=== PATIENT | female | born 1965 | race Caucasian/White ===

== ENCOUNTER → 2020-11-20 13:19 | Outpatient (CLI) | payer OTHER, BC, SELFPAY ==
--- NOTE | ~2020-11-20 | MM_ITS ---
EXAMINATION: MM screening aj BI w carli HISTORY: Screening TECHNIQUE: Craniocaudal and mediolateral oblique 3-D tomosynthesis images were obtained and synthetic 2-D images were generated. CAD analysis was submitted and interpreted. COMPARISON: Comparison to multiple prior studies sequentially, with oldest reviewed study dated 09/26. BREAST PARENCHYMAL COMPOSITION: The breasts are extremely dense, which lowers the sensitivity of mamm ography FINDINGS: Stable appearance to benign-appearing calcifications upper aspect of the left breast on MLO view. There is no evidence of suspicious mass, calcification, or architectural distortion to suggest malignancy in either breast. There has been no suspicious interval change. IMPRESSION: 1. No mammographic evidence of malignancy. 2. Recommend routine screening mammography in one year. BI-RADS Category 2: Benign finding(s). Reviewed, dictated and finalized at location A. 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
== END ==
PROVIDERS: PCP Internal Medicine; Visit Provider Obstetrics & Gynecology
DX: Z12.31 Encounter for screening mammogram for malignant neoplasm of breast (principal)
CPT/HCPCS: 77063; 77067

== ENCOUNTER → 2021-12-06 15:49 | Outpatient (CLI) | payer OTHER, BC, SELFPAY ==
--- NOTE | ~2021-12-06 | MM_ITS ---
EXAMINATION: MM screening aj BI w carli HISTORY: Screening TECHNIQUE: Craniocaudal and mediolateral oblique 3-D tomosynthesis images were obtained and synthetic 2-D images were generated. CAD analysis was submitted and interpreted. COMPARISON: Comparison to multiple prior studies sequentially, with oldest reviewed study dated 09/27. BREAST PARENCHYMAL COMPOSITION: The breasts are extremely dense, which lowers the sensitivity of mamm ography FINDINGS: There is no evidence of suspicious mass, calcification, or architectural distortion to sugg est malignancy in either breast. There has been no suspicious interval change. IMPRESSION: 1. No mammographic evidence of malignancy. 2. Recommend routine screening mammography in one year. BI-RADS Category 1: Negative Reviewed, dictated and finalized at location A. CTOR TITLE
== END ==
PROVIDERS: PCP Internal Medicine; Visit Provider Obstetrics & Gynecology
DX: Z12.31 Encounter for screening mammogram for malignant neoplasm of breast (principal)
CPT/HCPCS: 77063; 77067

== ENCOUNTER → 2022-11-17 08:08 | Outpatient (CLI) | payer OTHER, BC, SELFPAY ==
--- NOTE | ~2022-11-17 | CT_ITS ---
CT of the Abdomen and Pelvis: Indication: Microscopic hematuria Technique: 2.5 mm axial scans were obtained through the abdomen and pelvis prior to and following in travenous administration of 130 cc of Omnipaque 350. Dose reduction technique was used on this scan b y utilizing automated exposure control and iterative reconstruction technique. The dose-length produc t (DLP) was 1023.33 mGy-cm. COMPARISON: 07/04/2015 Findings: Scans through the lung bases are unremarkable. The liver, spleen, pancreas, gallbladder, left adrenal gland, and kidneys are within normal limits. L ow-density right adrenal nodule measures 2.6 cm in diameter. No evidence of aortic aneurysm. No lymp hadenopathy. No bowel obstruction or bowel wall thickening. There is no evidence to suggest acute appendicitis. Images through the pelvis were performed. Urinary bladder unremarkable. No adnexal mass seen. Small a mount of pelvic free fluid noted. Impression: No etiology for hematuria identified on this exam. 2.6 cm right adrenal adenoma. Small amount of pelvic free fluid, nonspecific. Reviewed, dictated and finalized at location . ESSOR OF ANTHROPOLOGY Impression: No etiology for hematuria identified on this exam. 2.6 cm right adrenal adenoma. Small amount of pelvic free fluid, nonspecific.
[2022-11-17 08:31] LABS: Estimated Glomerular Filt Rate > 60
== END ==
PROVIDERS: PCP Internal Medicine; Visit Provider Internal Medicine
DX: R31.29 Other microscopic hematuria (principal); D35.01 Benign neoplasm of right adrenal gland
CPT/HCPCS: 74178; Q9967

== ENCOUNTER → 2022-12-19 16:09 | Outpatient (CLI) | payer OTHER, BC, SELFPAY ==
--- NOTE | ~2022-12-19 | MM_ITS ---
EXAMINATION: MM screening aj BI w carli HISTORY: Screening mammogram TECHNIQUE: Craniocaudal and mediolateral oblique 3-D tomosynthesis images were obtained and synthetic 2-D images were generated. CAD analysis was submitted and interpreted. COMPARISON: December 06, 2021, November 20, 2020, September 30, 2019 bilateral screening mammogram exami nations BREAST PARENCHYMAL COMPOSITION: The breasts are heterogeneously dense, which may obscure small masses . FINDINGS: There is no evidence of suspicious mass, calcification, or architectural distortion to sugg est malignancy in either breast. There has been no suspicious interval change. IMPRESSION: 1. No mammographic evidence of malignancy. 2. Recommend routine screening mammography in one year. 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
== END ==
PROVIDERS: PCP Internal Medicine; Visit Provider Obstetrics & Gynecology
DX: Z12.31 Encounter for screening mammogram for malignant neoplasm of breast (principal)
CPT/HCPCS: 77063; 77067

== ENCOUNTER → 2023-05-04 12:32 | Outpatient (CLI) | payer OTHER, BC, SELFPAY ==
--- NOTE | ~2023-05-04 | DEXA_ITS ---
Bone Density Report Name: KIM GONZALES Age: 57 Sex: Female Ethnicity: White Date of : 1965 Indication: postmenopausal; screening for osteoporosis; Referring Provider: FarrukhGege Study: Bone densitometry was performed. Exam Date: May 04, 2023 Accession number: [id number] Bone Density: Region BMD T-score Z-score Classification AP Spine (L1-L4) 0.881 -1.5 -0.3 Osteopenia Femoral Neck (Left) 0.596 -2.3 -1.1 Osteopenia Total Hip (Left) 0.713 -1.9 -1.1 Osteopenia Femoral Neck (Right) 0.587 -2.4 -1.2 Osteopenia Total Hip (Right) 0.701 -2.0 -1.2 Osteopenia Total Hip Mean 0.707 -2.0 -1.2 Osteopenia World Health Organization criteria for BMD impression classify patients as: Normal (T-score at or above -1.0), Osteopenia (T-score between -1.0 and -2.5), or Osteoporosis (T-score at or below -2.5). 10-year Fracture Risk: FRAX not reported because: Treated for osteoporosis Clinical Information Provided by Patient: Is being treated for osteoporosis Has used the following medications: Actonel (i.e. risedronate), Vitamin D, MTV Patient maximum height was 62 Menopause Age: 53 No regular weight bearing exercise Drinks caffeinated beverages Onset of menses at age 17 Number of children 1 Impression: The patient has low bone mass, based on the Right Femoral Neck T-score. Discussion: It is important to ask patients whether they are taking their medications and to encourage continued and appropriate compliance with their osteoporosis therapies to reduce fracture risk. It is also important to review their risk factors and encourage appropriate calcium and vitamin D intakes, exercise, fall prevention and other lifestyle measures. Follow-Up: Consider a repeat BMD and Vertebral Fracture Assessment (VFA) exam in 2 years or sooner if medically necessary, to reassess this patient's status. Reported by: HERBERTH on 05/04/2023 12:54:00 PM. Reviewed, dictated and finalized at location ANagi JADE
== END ==
PROVIDERS: PCP Internal Medicine; Visit Provider Internal Medicine Endocrinology, Diabetes & Metabolism
DX: Z78.0 Asymptomatic menopausal state (principal); M85.88 Other specified disorders of bone density and structure, other site; M85.852 Other specified disorders of bone density and structure, left thigh; M85.851 Other specified disorders of bone density and structure, right thigh
CPT/HCPCS: 77080

== ENCOUNTER 2024-01-22 15:34 | Outpatient (CLI) | payer OTHER, BC, SELFPAY ==
--- NOTE | ~2024-01-22 | MM_ITS ---
EXAMINATION: MM screening aj BI w carli HISTORY: Screening mammogram TECHNIQUE: Craniocaudal and mediolateral oblique 3-D tomosynthesis images were obtained and synthetic 2-D images were generated. CAD analysis was submitted and interpreted. COMPARISON: December 19, 2022, December 06, 2021 bilateral screening mammogram examinations BREAST PARENCHYMAL COMPOSITION: The breasts are heterogeneously dense, which may obscure small masses . FINDINGS: There is no evidence of suspicious mass, calcification, or architectural distortion to sugg est malignancy in either breast. There has been no suspicious interval change. IMPRESSION: 1. No mammographic evidence of malignancy. 2. Recommend routine screening mammography in one year. BI-RADS Category 1: Negative Reviewed, dictated and finalized at location A.
== END 2024-01-22 15:35 ==
LOC: MICIMG 15:36
PROVIDERS: PCP Internal Medicine; Visit Provider Obstetrics & Gynecology
DX: Z12.31 Encounter for screening mammogram for malignant neoplasm of breast (principal)
CPT/HCPCS: 77063; 77067

== ENCOUNTER 2025-03-10 06:55 | Outpatient (CLI) | payer OTHER, BC, SELFPAY ==
--- NOTE | ~2025-03-10 | MM_ITS ---
EXAMINATION: MM screening aj BI w crali HISTORY: Screening TECHNIQUE: Craniocaudal and mediolateral oblique 3-D tomosynthesis images were obtained and synthetic 2-D images were generated. CAD analysis was submitted and interpreted. COMPARISON: Comparison to multiple prior studies sequentially, with oldest reviewed study dated 07/28. BREAST PARENCHYMAL COMPOSITION: Dense: The breasts are extremely dense, which lowers the sensitivity of mammography. FINDINGS: There is no evidence of suspicious mass, calcification, or architectural distortion to sugg est malignancy in either breast. There has been no suspicious interval change. IMPRESSION: 1. No mammographic evidence of malignancy. 2. Recommend routine screening mammography in one year. BI-RADS Category 1: Negative Reviewed, dictated and finalized at location B.
== END 2025-03-10 06:56 | disposition home or self-care (01) ==
LOC: MICIMG 03-13 06:59
PROVIDERS: PCP Internal Medicine; Visit Provider Obstetrics & Gynecology
DX: Z12.31 Encounter for screening mammogram for malignant neoplasm of breast (principal)
CPT/HCPCS: 77063; 77067